=== PATIENT | male | born 1970 | race American Indian/Alaskan Native ===

== ENCOUNTER 2017-03-12 22:29 | Emergency (ER) | payer MEDICAID ==
--- NOTE | 2017-03-12 23:13 | C.PDOC ---
History Of Present Illness 46 year old male presents to the ED c/o intermittent left flank pain that has been going on for approximately a month, decided to come today because it was worrying him. Patient states 3 days ago he noticed his urine was cloudy was that resolved when he started drinking water. He denies fever, chills, nausea, vomit. Time Seen by Provider: 03/12/17 22:54 Chief Complaint (Nursing): Abdominal Pain History Per: Patient History/Exam Limitations: no limitations Onset/Duration Of Symptoms: Intermittent Episodes Location Of Pain/Discomfort: Other (Left flank) Quality Of Discomfort: "Pain" Associated Symptoms: Urinary Symptoms (Cloudy urine). denies: Fever, Chills, Nausea, Vomiting Recent travel outside of the [place]: No Additional History Per: Patient Past Medical History Reviewed: Historical Data, Nursing Documentation, Vital Signs Vital Signs: Last Vital Signs Temp 98.4 F 03/13/17 00:11 Pulse 76 03/13/17 00:11 Resp 18 03/13/17 00:11 BP 126/81 03/13/17 00:11 Pulse Ox 98 03/13/17 00:11 - Medical History PMH: Asthma Surgical History: No Surg Hx Family History: States: Unknown Family Hx - Social History Hx Tobacco Use: Yes Hx Alcohol Use: No Hx Substance Use: No - Immunization History Hx Tetanus Toxoid Vaccination: No Hx Influenza Vaccination: No Hx Pneumococcal Vaccination: No Review Of Systems Constitutional: Negative for: Fever, Chills Cardiovascular: Negative for: Chest Pain Respiratory: Negative for: Cough, Shortness of Breath Gastrointestinal: Positive for: Abdominal Pain (Left flank). Negative for: Nausea, Vomiting Genitourinary: Negative for: Dysuria, Frequency, Incontinence, Hematuria, Penile Discharge Physical Exam - Physical Exam Appears: Non-toxic, No Acute Distress Skin: Warm, Dry Head: Atraumatic, Normacephalic Oral Mucosa: Moist Cardiovascular: Rhythm Regular Respiratory: No Decreased Breath Sounds, No Accessory Muscle Use Gastrointestinal/Abdominal: Soft, No Tenderness, No Distention, No Guarding, No Rebound Back: No CVA Tenderness Extremity: No Pedal Edema Neurological/Psych: Oriented x3 ED Course And Treatment O2 Sat by Pulse Oximetry: 99 (On RA) Pulse Ox Interpretation: Normal Medical Decision Making Medical Decision Makinpm disc results w pt, plan for close f/u w urology, return if worse. pt without sx currently but he is requesting abx as he said this helped him last time this happened. Disposition - Disposition Referrals: Berry Jha Jr., MD [Staff Provider] - Disposition: HOME/ ROUTINE Disposition Time: 23:56 Condition: GOOD Additional Instructions: Please follow up with your doctor and also with the urologist. Return to the ER for any worsening symptoms or for any other concerns. Prescriptions: Cephalexin [Keflex] 500 mg PO BID #14 capsule Instructions: Acute Hematuria (ED) Forms: General Discharge Instructions, [facility] (Vietnamese) - Clinical Impression Clinical Impression: Hematuria - Scribe Statement The provider has reviewed the documentation as recorded by the Scribe Huber Vang All medical record entries made by the Scribe were at my direction and personally dictated by me. I have reviewed the chart and agree that the record accurately reflects my personal performance of the history, physical exam, medical decision making, and the department course for this patient. I have also personally directed, reviewed, and agree with the discharge instructions and disposition.
[2017-03-12 23:41] LABS: RBC URINE 12 /hpf (0-3); URINE BACTERIA RARE (<OCC); URINE BILIRUBIN NEGATIVE (NEGATIVE); URINE BLOOD 1+ (NEGATIVE); URINE COLOR Yellow (YELLOW); URINE GLUCOSE (UA) NORMAL (Normal); URINE KETONE NEGATIVE (NEGATIVE); URINE LEUKOCYTE ESTERASE NEG Leu/uL (Negative); URINE PROTEIN NEGATIVE (NEGATIVE); WBC URINE 2 /hpf (0-5)
[2017-03-13 00:12] VITALS: BP 126/81; PULSE 76; RESP 18; TEMP 98.4
[2017-03-13 00:42] VITALS: O2SAT 99
== END 2017-03-13 00:12 | disposition home or self-care (01) ==
LOC: C.ER 22:29
DX: R31.9 Hematuria, unspecified (principal); Z87.891 Personal history of nicotine dependence

== ENCOUNTER 2017-07-27 23:42 | Emergency (ER) | payer MEDICAID ==
[2017-07-28] MEDS ORDERED: Aspirin 325 mg EC Tablets PO STA (00:05)
--- NOTE | 2017-07-28 00:05 | C.PDOC ---
History Of Present Illness 46 y/o male presents complaining of chest discomfort occurring on and off for the past 8 days. Reports he feels more uncomfortable at rest, and short of breath. On arrival patient is speaking in complete sentences. No respiratory distress. O2 sat on room air 98-100%. Patient still smokes 1/2 pack per day. Denies any nausea, vomiting, fever, chills, or URI symptoms. Time Seen by Provider: 07/28/17 00:04 Chief Complaint (Nursing): Chest Pain History Per: Patient History/Exam Limitations: no limitations Onset/Duration Of Symptoms: Days (x8) Current Symptoms Are (Timing): Still Present Severity: Moderate Pain Scale Rating Of: 5 Quality: "Pain" Associated Symptoms: Dyspnea Alleviating Factors: None Recent travel outside of the [place]: No Past Medical History Reviewed: Historical Data, Nursing Documentation, Vital Signs Vital Signs: Last Vital Signs Temp 97.8 F 07/27/17 23:50 Pulse 71 07/28/17 00:06 Resp 16 07/28/17 00:06 BP 106/83 07/28/17 00:06 Pulse Ox 96 07/28/17 00:47 - Medical History PMH: Asthma Other PMH: Headaches associated with sinusitis Surgical History: No Surg Hx Family History: States: No Known Family Hx - Social History Hx Tobacco Use: Yes Hx Alcohol Use: No Hx Substance Use: No - Immunization History Hx Tetanus Toxoid Vaccination: No Hx Influenza Vaccination: No Hx Pneumococcal Vaccination: No Review Of Systems Constitutional: Negative for: Fever, Chills ENT: Negative for: Nose Congestion, Throat Pain Cardiovascular: Positive for: Chest Pain Respiratory: Positive for: Shortness of Breath. Negative for: Cough Gastrointestinal: Negative for: Abdominal Pain Musculoskeletal: Negative for: Back Pain Skin: Negative for: Rash Neurological: Negative for: Weakness Psych: Negative for: Anxiety Physical Exam - Physical Exam Appears: Non-toxic, No Acute Distress Skin: Warm, Dry Head: Normacephalic Eye(s): bilateral: Normal Inspection Oral Mucosa: Moist Throat: No Erythema Neck: Supple Chest: Symmetrical, No Tenderness Cardiovascular: Rhythm Regular, No Murmur Respiratory: No Rales, No Rhonchi, No Wheezing Gastrointestinal/Abdominal: Soft, No Tenderness, No Distention Back: No CVA Tenderness Extremity: Normal ROM Extremity: Bilateral: Atraumatic, Normal ROM Pulses: Left Dorsalis Pedis: Normal, Right Dorsalis Pedis: Normal Neurological/Psych: Oriented x3 Gait: Steady ED Course And Treatment - Laboratory Results Result Diagrams: 07/28/17 00:21 07/28/17 00:21 ECG: Interpreted By Me, Viewed By Me ECG Rhythm: Sinus Rhythm (75), Nonspecific Changes O2 Sat by Pulse Oximetry: 96 (RA) Pulse Ox Interpretation: Normal - Radiology CXR: Interpreted by Me, Viewed By Me CXR Interpretation: No: Infiltrates, Fracture, Pnemothorax Progress Note: Ordered labs, EKG, and chest x-ray. Patient given 325 mg Aspirin and Duoneb treatment Reevaluation Time: 02:44 Reassessment Condition: Improved Critical Care Time - Critical Care Note Total Time (in mins): 30 Documented critical care: time excludes all time spent performing seperately billable procedures. Disposition Counseled Patient/Family Regarding: Studies Performed, Diagnosis, Need For Followup, Rx Given - Disposition Referrals: [facility] [Outside] [facility] [Outside] Disposition: HOME/ ROUTINE Disposition Time: 00:05 Condition: FAIR Additional Instructions: Please return if symptoms recur Prescriptions: Albuterol HFA [Ventolin HFA 90 mcg/actuation (8 g)] 2 puff IH [id number] #1 puff Prednisone [Deltasone] 20 mg PO DAILY #5 tablet Instructions: Asthma, Adult (DC) Forms: [facility] (Tajik) - Clinical Impression Clinical Impression: Asthma exacerbation - Scribe Statement The provider has reviewed the documentation as recorded by the Scribe (Mary Anne Romano) Provider Attestation: All medical record entries made by the Scribe were at my direction and personally dictated by me. I have reviewed the chart and agree that the record accurately reflects my personal performance of the history, physical exam, medical decision making, and the department course for this patient. I have also personally directed, reviewed, and agree with the discharge instructions and disposition.
[2017-07-28 00:23] VITALS: BP 106/83
[2017-07-28 00:24] LABS: BASO # 0.1 K/uL (0.0-0.2); BASO % 0.7 % (0.0-2.0); EOS # 0.3 K/uL (0.0-0.7); EOS % 3.9 % (0.0-4.0); HEMOGLOBIN 14.4 g/dL (12.0-18.0); LYMPH # 3.6 K/uL (1.0-4.3); LYMPH % 51.8 % (20.0-40.0); MEAN CELL VOLUME 87.4 fL (80.0-94.0); MEAN CORPUSCULAR HEMOGLOBIN 30.5 pg (27.0-31.0); MEAN CORPUSCULAR HGB CONC 34.9 g/dL (33.0-37.0); MEAN PLATELET VOLUME 7.7 fL (7.2-11.7); MONO # 0.6 K/uL (0.0-0.8); MONO % 8.3 % (0.0-10.0); NEUT # 2.5 K/uL (1.8-7.0); NEUT % 35.3 % (50.0-75.0); NRBC % 0.1 % (0.0-2.0); RBC 4.74 Mil/uL (4.40-5.90); RED CELL DISTRIBUTION WIDTH 14.4 % (11.5-14.5)
[2017-07-28] MEDS ORDERED: Aspirin 325 mg EC Tablets PO ONE (00:26)
[2017-07-28 00:33] LABS: PROTHROMBIN TIME 11.3 SECONDS (9.7-12.2)
[2017-07-28 00:36] LABS: ALB/GLOB RATIO 1.1 (1.0-2.1); ALBUMIN 4.2 g/dL (3.5-5.0); ALT/SGPT 31 U/L (21-72); AST/SGOT 28 U/L (17-59); BLOOD UREA NITROGEN 13 mg/dL (9-20); CALCIUM 9.4 mg/dl (8.6-10.4); GFR AFRICAN-AMERICAN > 60; GFR NON-AFRICAN AMERICAN > 60
[2017-07-28] MEDS: Albuterol-Ipratrop 3 mg / 0.5 (3 ml) UD IH SCH ×3 (00:37→01:20)
[2017-07-28] MEDS ORDERED: Albuterol-Ipratrop 3 mg / 0.5 (3 ml) UD ONE (00:40)
[2017-07-28 00:49] LABS: B-TYPE NATRIURETIC PEPTIDE < 11.1 pg/mL (0-450)
[2017-07-28 01:13] LABS: ARTERIAL BLOOD GAS HCO3 25.5 mmol/L (21-28); ARTERIAL BLOOD GAS O2 SAT 34.9 % (95-98); ARTERIAL BLOOD GAS PCO2 50 mm/Hg (35-45); ARTERIAL BLOOD GAS PH 7.38 (7.35-7.45); ARTERIAL BLOOD GAS PO2 16 mm/Hg (80-100); ARTERIAL BLOOD GAS TCO2 31.1 mmol/L (22-28)
[2017-07-28 03:54] VITALS: PULSE 84; RESP 20; TEMP 98; O2SAT 97
--- NOTE | 2017-07-28 09:51 | RAD ---
PROCEDURE: CHEST RADIOGRAPH, 1 VIEW HISTORY: Chest pain COMPARISON: None available. FINDINGS: LUNGS: The lungs are well inflated and clear. PLEURA: No pneumothorax or pleural fluid seen. CARDIOVASCULAR: Normal. OSSEOUS STRUCTURES: No significant abnormalities. VISUALIZED UPPER ABDOMEN: Normal. OTHER FINDINGS: None. IMPRESSION: No active pulmonary disease.
== END 2017-07-28 03:53 | disposition home or self-care (01) ==
LOC: C.ER 23:42
DX: J45.901 Unspecified asthma with (acute) exacerbation (principal); F17.210 Nicotine dependence, cigarettes, uncomplicated

== ENCOUNTER 2017-11-19 22:31 | Emergency (ER) | payer MEDICAID ==
[2017-11-19 22:42] VITALS: BP 124/78; PULSE 59; RESP 20; TEMP 98.1; O2SAT 99
--- NOTE | 2017-11-19 22:59 | C.PDOC ---
History Of Present Illness 47 yo male w/PMHx of asthma come in for evaluation of Left shoulder and left elbow pain developed for past few days " lifting heavy boxes at work". 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 Pt reports, " my boss send me for clearance". Pt denies known direct trauma or injury, fever, chills, neck pain, CP, SOB, dyspnea, diaphoresis, palpitation, denies weakness, sensory or vascular deficits to [place]. Ambulate to Ed for evaluation, not in any apparent distress. Time Seen by Provider: 11/19/17 22:43 Chief Complaint (Nursing): Upper Extremity Problem/Injury History Per: Patient Past Medical History Reviewed: Historical Data, Nursing Documentation, Vital Signs Vital Signs: Last Vital Signs Temp 98.1 F 11/19/17 22:38 Pulse 59 L 11/19/17 22:38 Resp 20 11/19/17 22:38 BP 124/78 11/19/17 22:38 Pulse Ox 99 11/19/17 22:38 - Medical History PMH: Asthma Surgical History: No Surg Hx Family History: States: Unknown Family Hx - Social History Hx Tobacco Use: Yes Hx Alcohol Use: No Hx Substance Use: No - Immunization History Hx Tetanus Toxoid Vaccination: No Hx Influenza Vaccination: No Hx Pneumococcal Vaccination: No Review Of Systems Except As Marked, All Systems Reviewed And Found Negative. Constitutional: Negative for: Fever, Chills Eyes: Negative for: Vision Change ENT: Negative for: Throat Pain Cardiovascular: Negative for: Chest Pain, Palpitations, Edema, Light Headedness Respiratory: Negative for: Cough, Shortness of Breath, Wheezing Gastrointestinal: Negative for: Nausea, Vomiting, Abdominal Pain Musculoskeletal: Positive for: Shoulder Pain (Left). Negative for: Neck Pain Skin: Negative for: Rash, Bruising Neurological: Negative for: Weakness, Numbness, Headache, Dizziness Physical Exam - Physical Exam Appears: Well, Non-toxic, No Acute Distress Skin: Normal Color, Warm, Dry, No Rash Head: Normacephalic Eye(s): bilateral: PERRL Nose: No Flaring, No Discharge Oral Mucosa: Moist Throat: No Erythema, No Drooling Neck: Normal ROM, Trachea Midline, No Midline Cervical Tenderness, No Paracervical Tenderness, No Step Off Deformity, Supple Chest: Symmetrical, No Deformity Cardiovascular: Rhythm Regular, No Murmur, No JVD Respiratory: No Decreased Breath Sounds, No Accessory Muscle Use, No Stridor, No Wheezing Back: No Vertebral Tenderness, No Paraspinal Tenderness Extremity: Normal ROM (LUE without difficulty), Tenderness (lateral aspect left elbow), Capillary Refill (less than 2sec to left hand), No Deformity, No Swelling Neurological/Psych: Oriented x3, Normal Speech, Normal Motor, Normal Sensation, Normal Reflexes ED Course And Treatment O2 Sat by Pulse Oximetry: 99 Pulse Ox Interpretation: Normal Progress Note: On re-evaluation, pt is afebrile, hemodynamicaly stable. Non- toxic. PulseOx 99% RA. neck: Supple, (-) JVD, (-) carotid bruits B/L. Lungs: CTA B/L, BS equal B/L. CVS: (+)S1S2, reg. LUE: mild tenderness lateral aspect left elbow. FAROM, no neurovascular deficits. Neurologicaly intact. Imaging offered of LUE, pt refused. Pt has clinicalfinidngs c/e left shoulder strain, left elbow tendonitis. Pt advised. ref. to F/u with PMD, Otrho in 2-3 days for re-eval. return to ED if any worsening or new changes. Disposition Counseled Patient/Family Regarding: Diagnosis, Need For Followup - Disposition Referrals: [facility] [Outside] Esequiel Laureano III, MD [Staff Provider] - Disposition: HOME/ ROUTINE Disposition Time: 22:56 Condition: STABLE Additional Instructions: Chan wrap to left elbow Take ibuprofen as need for pain Follow up with PMD, Orthopedist in 2-3 days for re-evaluation. return to ED if any worsening or new changes. Prescriptions: Ibuprofen [Motrin Tab] 600 mg PO TID #14 tab Instructions: Elbow Sprain (DC) Forms: [employer] [facility] ([place] Citizen), Work Excuse - Clinical Impression Clinical Impression: Elbow tendonitis
== END 2017-11-19 23:07 | disposition home or self-care (01) ==
LOC: C.ER 22:31
DX: S46.912A Strain of unspecified muscle, fascia and tendon at shoulder and upper arm level, left arm, initial encounter (principal); X50.0XXA Overexertion from strenuous movement or load, initial encounter; Y92.89 Other specified places as the place of occurrence of the external cause; Y99.0 Civilian activity done for income or pay; M77.8 Other enthesopathies, not elsewhere classified